=== PATIENT | female | born 1990 | race Caucasian/White ===

== ENCOUNTER 2017-10-01 07:39 | Emergency (ER) | payer BC ==
[2017-10-01 07:56] VITALS: BP 115/66
--- NOTE | 2017-10-01 08:24 | UC ---
Complaint Female HPI - HPI Summary HPI Summary: Pt with frequent, urgency x 4 days no n/v no fever, chills, rash no back pain No hematuria. + po no analgesia No vaginal discharge, itching, odor Pt's medications reviewed this visit - History Of Current Complaint Chief Complaint: UCGU Stated Complaint: URINARY COMPLAINT Time Seen by Provider: 10/01/17 08:07 Hx Obtained From: Patient Hx Last Menstrual Period: 09/04/17 Onset/Duration: Gradual Onset, Lasting Days Pain Intensity: 0 - Allergies/Home Medications Allergies/Adverse Reactions: Allergies Allergy/AdvReac Type Severity Reaction Status Date / Time amoxicillin Allergy Intermediate Hives Verified 10/01/17 07:55 Home Medications: Home Medications Norethindrone AC-Eth Estradiol [Microgestin 07/17 1-20 mg-Mcg] 1 tab PO DAILY 12/13 [History Confirmed 10/01/17] PMH/Surg Hx/FS Hx/Imm Hx Previously Healthy: Yes Other History Of: Negative For: HIV, Hepatitis B, Hepatitis C, Anticoagulant Therapy - Surgical History Surgical History: None - Family History Known Family History: Negative: Cardiac Disease, Hypertension, Diabetes - Social History Occupation: Employed Full-time Lives: With Family Alcohol Use: Occasionally Substance Use Type: None Smoking Status (MU): Light Every Day Tobacco Smoker Type: Cigarettes Amount Used/How Often: 1/2 PPD Length of Time of Smoking/Using Tobacco: 5 YRS Have You Smoked in the Last Year: Yes Household Exposure Type: Cigarettes Review of Systems Constitutional: Negative Gastrointestinal: Negative Genitourinary: Dysuria, Frequency, Urgency All Other Systems Reviewed And Are Negative: Yes Physical Exam Triage Information Reviewed: Yes Appearance: Well-Appearing, No Pain Distress Vital Signs: Initial Vital Signs Temp 99.0 F 10/01/17 07:49 Pulse 85 10/01/17 07:49 Resp 18 10/01/17 07:49 BP 115/66 10/01/17 07:49 Pulse Ox 99 10/01/17 07:49 Vital Signs Reviewed: Yes Eye Exam: Normal ENT Exam: Normal Dental Exam: Normal Neck exam: Normal Neck: Positive: Supple, Nontender Respiratory Exam: Normal Respiratory: Positive: Lungs clear, Normal breath sounds, No respiratory distress, No accessory muscle use Cardiovascular Exam: Normal Cardiovascular: Positive: RRR, No Murmur Abdominal Exam: Normal Abdomen Description: Positive: Nontender, No Organomegaly, Soft. Negative: CVA Tenderness (R), CVA Tenderness (L) Musculoskeletal Exam: Normal Neurological Exam: Normal Psychological Exam: Normal Skin Exam: Normal Complaint Female Dx - Course Course Of Treatment: Pt with urgency, frequent. VSS. exam non concerning. bactrim. hydrate. motrin/apap. pt will take OTC azo. Pt request diflucan for abx related yeast. return precautions discussed. Pt aware of culture - Differential Dx/Diagnosis Provider Diagnoses: UTI Discharge - Sign-Out/Discharge Documenting (check all that apply): Discharge - home - Discharge Plan Condition: Stable Disposition: HOME Prescriptions: Fluconazole 150 MG (NF) [Diflucan 150 mg (NF)] 150 mg PO ONCE PRN #1 tab PRN Reason: vaginal yeast infection Sulfamethox/Trimethoprim DS* [Bactrim DS 800/160 TAB*] 1 tab PO BID #14 tab Patient Education Materials: Urinary Tract Infection in Women (ED) Referrals: Kasandra Thrasher MD [Primary Care Provider] - Additional Instructions: - stay well hydrated - drink plenty of non-alcoholic, non caffinated beverages - your urine will be further tested - if you require any changes to your treatment, we will contact you - this usually take 2 days - Contact your primary doctor to arrange a follow-up appointment next week. Contact your doctor or return with questions or concerns - Take your antibiotics exactly as prescribed until gone - okay to take Azo as prescribed for discomfort. This will make your urine blaze orange - this is normal - Okay to alternate ibuprofen (Advil, Motrin) and Tylenol every 3 hours for pain. Take with food - If you develop fevers, back pain, chills, vomiting or other concerns - you should go to the emergency department - you have been prescribed the one time treatment for a yeast infection - okay to use as needed after you complete your antibiotics - Call your doctor or return with questions or concerns - Billing Disposition and Condition Condition: STABLE Disposition: HOME
== END 2017-10-01 08:37 | disposition home or self-care (01) ==
LOC: UCCORT 07:39
DX: N39.0 Urinary tract infection, site not specified (principal); F17.210 Nicotine dependence, cigarettes, uncomplicated
CPT/HCPCS: 81003; 87077; 87086; 87186; 99212; G0463

== ENCOUNTER 2018-01-12 08:36 | Emergency (ER) | payer BC ==
--- OUTSIDE RECORDS SUMMARY | 2018-01-12 08:51 | XMS REPORT ---
:1990 External Reference #:[id number] Author Organization [facility]ly [facility] Address [address], [address] [place] [address] Phone [phone] Care Team Providers Name Role Phone Kasandra Thrasher M.D. Care Team Information Accounts Executive Unavailable Kasandra Thrasher M.D. Primary Care Physician Unavailable Payers Type Date Identification Numbers Payment Provider Subscriber Commercial Policy Number: [id number] Rhonda Epps PayID: [id number] [address] [address] [place] [address] Problems Date Description Provider Status Onset: 12/13/2015 Tobacco user Kasandra Thrasher M.D. Active Onset: 12/13/2015 Manic bipolar I disorder in partial Kasandra Thrasher M.D. Active remission Onset: 12/13/2015 Epilepsy Kasandra Thrasher M.D. Active Family History Date Family Member(s) Problem(s) Comments General Epilepsy Social History Type Date Description Comments ETOH Use Drinks Alcoholic Beverages Occasionally Smoking Heavy tobacco smoker (more than 10 cigarettes/day) Allergies, Adverse Reactions, Alerts Date Description Reaction Status Severity Comments 12/13/2015 Amoxicillin active Medications Medication Date Status Form Strength Qnty SIG Indications Ordering Provider Quetiapine 12/31 Active Tablets 25mg 30tab take 1 tab by Kasandra Fumarate s mouth at Melissa Thrasher bedtime Norethindrone 12/17 Active Tablets 1-20mg-mc 63tab take 1 pill Z30.011 Kasandra Acetate/Ethiny /2016 g s by mouth Melissa Thrasher l Estradiol every daily x 21 days and then no pills x 7 days Lamotrigine Active Tablets 200mg 1 1/2 by Unknown /0000 mouth twice a day Depo-Provera 12/12 Hx Suspension 150mg/ml 1unit inject 150mg s intramuscular Melissa Thrasher - ly every 3 Quetiapine Hx Tablets 50mg 30tab take one Kasandra s tablet by Melissa Thrasher - mouth every 12/31 evening at 2018 bedtime Immunizations CPT Code Status Date Vaccine Lot # [id number] Given 04/18/2014 Influenza Vaccine (Fluzone) Age 3 And Older [id number] Given 09/20/2009 Gardasil 06090 Given 03/01/2009 Gardasil U-MCV4 Given 12/14/2008 Meningococcal MCV4,Unspecified 21842 Given 12/14/2008 Tdap injection 32995 Given 12/14/2008 Gardasil U-DTaP Given 09/09/1995 DTaP,Unspecified 86815 Given 09/09/1995 Hepatitis B Vaccine Pediatric/Adolescent 13468 Given 09/09/1995 Poliovirus Vaccine Subcutaneous Or Intramuscular 64860 Given 09/09/1995 MMR Vaccine, Live, For Subcutaneous Use 33057 Given 01/02/1993 Hepatitis B Vaccine Pediatric/Adolescent 16866 Given 07/11/1992 Hepatitis B Vaccine Pediatric/Adolescent U-DTaP Given 04/17/1992 DTaP,Unspecified 81001 Given 04/17/1992 Poliovirus Vaccine Subcutaneous Or Intramuscular 85383 Given 04/17/1992 MMR Vaccine, Live, For Subcutaneous Use U-DTaP Given 02/17/1991 DTaP,Unspecified 59672 Given 02/17/1991 Hib PRP-T Conjugate 4 Dose Schedule U-DTaP Given 1990 DTaP,Unspecified 15567 Given 1990 Poliovirus Vaccine Subcutaneous Or Intramuscular 03257 Given 1990 Hib PRP-T Conjugate 4 Dose Schedule U-DTaP Given 1990 DTaP,Unspecified 47017 Given 1990 Poliovirus Vaccine Subcutaneous Or Intramuscular 79305 Given 1990 Hib PRP-T Conjugate 4 Dose Schedule Vital Signs Date Vital Result Comment 12/31/2017 BP Systolic Sitting Left Arm 112 mmHg BP Diastolic Sitting Left Arm 70 mmHg Body Temperature 98.7 F Heart Rate 92 /min Weight 113.00 lb O2 % BldC Oximetry 97 % 04/30/2017 BP Systolic 114 mmHg BP Diastolic 68 mmHg Height 61 inches 5'1" Weight 115.50 lb BMI (Body Mass Index) 21.8 kg/m2 BSA (Body Surface Area) 1.50 m2 [facility] body weight in kilograms 48 12/17/2016 BP Systolic 124 mmHg BP Diastolic 82 mmHg Body Temperature 99.7 F Heart Rate 79 /min Height 61 inches 5'1" Weight 116.00 lb BMI (Body Mass Index) 21.9 kg/m2 BSA (Body Surface Area) 1.50 m2 [facility] body weight in kilograms 48 12/13/2015 BP Systolic Sitting Left Arm 112 mmHg BP Diastolic Sitting Left Arm 70 mmHg Heart Rate 72 /min Respiratory Rate 18 /min Height 61 inches 5'1" Weight 110.00 lb BMI (Body Mass Index) 20.8 kg/m2 BSA (Body Surface Area) 1.46 m2 [facility] body weight in kilograms 48 Results Test Date Test Result H/L Range Note Laboratory test 10/01/2017 Urine Culture SEE RESULT BELOW 1, 2 finding Poc Urinalysis 10/01/2017 Poc Glucose, Negative Negative Urine Poc Bilirubin, Urine Negative Negative Poc Ketone, Urine Negative Negative Poc Specific [place], Urine >=1.030 1.010-1.030 Poc Blood, Urine Trace-intact Negative Poc pH, Urine 6.5 5-9 Poc Protein, Urine 1+ Negative Poc Urobilinogen, Urine 0.2 Negative Poc Nitrite, Urine Positive Negative Poc Leukocytes, Urine 1+ Negative Poc Color, Urine Other Poc Clarity, Urine Slightly Cloudy 3 Laboratory test finding 07/20/2017 Lamotrigine (Lamictal) 17.8 g/mL 2.5 - 15.0 4 Laboratory test finding 01/08/2017 Lamotrigine (Lamictal) 11.5 g/mL 2.5 - 15.0 5 Laboratory test finding 12/25/2016 Lamotrigine 9.3 g/mL 2.5 - 15.0 6 Laboratory test finding 02/25/2016 Lamotrigine (Lamictal) 8.7 g/mL 2.5 - 15.0 7 1 [id number] 2 SEE RESULT BELOW Name: HANNAH EPPS : [address]: Kathleen Sanchez MD Acct: [id number] Unit: [id number] AGE: 27 Location: [facility] Re10/01/17 SEX: F Status: DEP ER SPEC: [id number] LEYLA: 10/01/17-806 [facility] [address]: Kathleen Sanchez MD REQ: [id number] RECD: 10/01/17 STATUS: PEG CLARK DR: Kasandra Thrasher MD _ SOURCE: URINE SPDESC: ORDERED: Urine Culture COMMENTS: [id number] Procedure Result Reported Site Urine Culture Final 10/03/17- 0903 ML Organism 1 ESCHERICHIA COLI [place] Count >100,000 (Many) CFU/ML 1. ESCHERICHIA COLI M.I.C. RX --------- ------ Ampicillin >=32 R Cefazolin <=4 S Cefepime <=1 S Ceftriaxone <=1 S Ciprofloxacin <=0.25 S Gentamicin <=1 S Levofloxacin <=0.12 S Meropenem <=0.25 S Nitrofurantoin <=16 S Tetracycline <=1 S Pipercillin/Tazobactam <=4 S Trimethoprim/Sulfamethoxazole <=20 S Amoxicillin/Clavulanic Acid 4 S Aztreonam <=1 S Contact the Microbiology Department for any additional antibiotic reporting. * ML - Main Lab . END OF REPORT DEPARTMENT OF PATHOLOGY, [address] [place] [address] Americo Coley M.D. Director [facility] # [id number] 3 [employer] Safety Professor: [id number] ADDITIONAL INFORMATION This test was developed and its performance characteristics determined by [facility] in a manner consistent with CLIA requirements. This test has not been cleared or approved by the U.S. Food and Drug Administration. Test Performed by: [facility] [address] [place] [address] 5 ADDITIONAL INFORMATION This test was developed and its performance characteristics determined by [facility] in a manner consistent with CLIA requirements. This test has not been cleared or approved by the U.S. Food and Drug Administration. Test Performed by: [facility] - [address] [address] 6 ADDITIONAL INFORMATION This test was developed and its performance characteristics determined by [facility] in a manner consistent with CLIA requirements. This test has not been cleared or approved by the U.S. Food and Drug Administration. Test Performed by: [facility] - [address] [address] Test Performed by: [facility] - [address] [address] Sample Tester Grinder: Magdy Benz II, M.D., Ph.D. Procedures Description No Information Encounters Type Date Location Provider CPT E/M Dx Office Visit 12/31/2017 10:45a [facility] Kasandra Thrasher M.D. 17999 F31.73 G40.909 Office Visit 04/30/2017 11:45a [facility] Kasandra Thrasher M.D. 90339 Z30.41 G40.909 F31.73 Office Visit 12/17/2016 2:45p [facility] Kasandra Thrasher M.D. 04423 Z30.011 Office Visit 12/13/2015 9:00a [facility] Kasandra Thrasher M.D. 08239 G40.909 F31.73 D68.0 Z30.8 F17.210 Z71.6 Plan of Care Future Appointment(s):02/09/2018 2:00 pm - Kasandra Thrasher M.D. at [facility]12/31/2017 - Kasandra Thrasher M.D.F31.73 Bipolar disord, in partial remis, most recent episode manicComments:will start taper because of patient request, aware that she could relapse or cycle back into mood disorderwill start seroquel 25mg and take daily for 1 mosthen decrease to 25mg QOD for 1 mosthen decrease to 25mg every few days and then d/c over 3 months totalwill do longer taper to avoid relapsewill call with any mood concerns or side effect concernsHas BF she sees regularly that could help advise her if any concern mood changes she is not aware ofFollow up:3-6 weeks as ANNUAL PEG40.909 Epilepsy , unsp, not intractable, without status epilepticus
[2018-01-12 08:56] VITALS: BP 108/68
--- NOTE | 2018-01-12 09:32 | UC ---
Complaint Female HPI - HPI Summary HPI Summary: Dysuria starting yesterday. No fever, vomiting, flank pain. No vaginal symptoms. Prior UTI was a while ago. - History Of Current Complaint Chief Complaint: UCGU Stated Complaint: URINARY Time Seen by Provider: 01/12/18 09:00 Hx Obtained From: Patient Hx Last Menstrual Period: unknown ?: No Onset/Duration: Gradual Onset, Lasting Hours Timing: Constant Severity Initially: Moderate Severity Currently: Moderate Pain Intensity: 0 Character: Burning Aggravating Factor(s): Urination Alleviating Factor(s): Nothing Associated Signs And Symptoms: Positive: Negative - Allergies/Home Medications Allergies/Adverse Reactions: Allergies Allergy/AdvReac Type Severity Reaction Status Date / Time amoxicillin Allergy Intermediate Hives Verified 01/12/18 08:51 Home Medications: Home Medications QUEtiapine TAB* [Seroquel 25 MG TAB*] 25 mg PO DAILY 01/12/18 [History Confirmed 01/12/18] PMH/Surg Hx/FS Hx/Imm Hx Previously Healthy: No - epilepsy. Other History Of: Negative For: HIV, Hepatitis B, Hepatitis C, Anticoagulant Therapy - Surgical History Surgical History: None - Family History Known Family History: Negative: Cardiac Disease, Hypertension, Diabetes - Social History Occupation: Employed Full-time Alcohol Use: Occasionally Substance Use Type: None Smoking Status (MU): Heavy Every Day Tobacco Smoker Type: Cigarettes Amount Used/How Often: 1/2 PPD Length of Time of Smoking/Using Tobacco: 5 YRS Have You Smoked in the Last Year: Yes Household Exposure Type: Cigarettes Review of Systems Genitourinary: Dysuria, Frequency All Other Systems Reviewed And Are Negative: Yes Physical Exam Triage Information Reviewed: Yes Appearance: Well-Appearing, No Pain Distress, Well-Nourished Vital Signs: Initial Vital Signs Temp 99.4 F 01/12/18 08:52 Pulse 84 01/12/18 08:52 Resp 14 01/12/18 08:52 BP 108/68 01/12/18 08:52 Pulse Ox 100 01/12/18 08:52 Vital Signs Reviewed: Yes Eyes: Positive: Conjunctiva Clear ENT: Positive: Normal ENT inspection Neck: Positive: Supple, Nontender, No Lymphadenopathy Respiratory: Positive: Chest non-tender, Lungs clear, Normal breath sounds, No respiratory distress, No accessory muscle use. Negative: Respiratory distress, Decreased breath sounds, Accessory muscle use Cardiovascular: Positive: No Murmur, Pulses Normal, Brisk Capillary Refill Abdomen Description: Positive: Nontender, No Organomegaly, Soft. Negative: CVA Tenderness (R), CVA Tenderness (L), Distended, Guarding Musculoskeletal: Positive: Strength Intact, ROM Intact, No Edema Neurological: Positive: Alert, Muscle Tone Normal. Negative: Fatigued Psychological: Positive: Age Appropriate Behavior Skin: Negative: rashes Complaint Female Dx - Course Course Of Treatment: she agrees to return for any worsening symptoms. - Differential Dx/Diagnosis Provider Diagnoses: uti Discharge - Sign-Out/Discharge Documenting (check all that apply): Patient Departure - Discharge Plan Condition: Good Disposition: HOME Prescriptions: Nitrofurantoin Macrocrystals* [Macrodantin 100 mg*] 100 mg PO BID #20 cap Patient Education Materials: Urinary Tract Infection in Women (ED) Referrals: Kasandra Thrasher MD [Primary Care Provider] - - Billing Disposition and Condition Condition: GOOD Disposition: Home
== END 2018-01-12 09:34 | disposition home or self-care (01) ==
LOC: UCCORT 08:36
DX: N39.0 Urinary tract infection, site not specified (principal); Z88.0 Allergy status to penicillin
CPT/HCPCS: 81003; 87077; 87086; 87186; 99212; G0463

== ENCOUNTER 2018-08-16 09:56 | Emergency (ER) | payer BC ==
[2018-08-16 10:37] VITALS: BP 113/59
--- NOTE | 2018-08-16 10:51 | UC ---
Headache HPI - HPI Summary HPI Summary: 28-year-old female presents with complaints of dizziness. She states that she had 3 days worth of dizziness which she described as a room spinning and lightheadedness sensation that occurred last week from 08/08/2018 until 2018. States the dizziness was persistent over the full 3 days and then resolved on its own. States she also had a headache in the afternoon while 3 days that was located behind her left eye and radiated into her left jaw. She has a history of migraine headaches. States the headaches were consistent with her migraine headaches although they tend to be right-sided. She did note having some mild nausea during the dizziness but no episodes of vomiting. She also complained one episode on 08/09/2018 of some sharp epigastric pain that lasted for a couple of hours and resolved. She is presently symptom-free. Denies fever, chills, ear discharge, tinnitus, visual disturbances, facial droop , slurred or difficulty speaking, chest pain, palpitations, shortness of breath , loss of consciousness, confusion, memory loss, diarrhea, or urinary symptoms. States she has an appointment with her neurologist scheduled for next week. - History Of Current Complaint Chief Complaint: UCDizziness Stated Complaint: DIZZINESS, HEADACHES Time Seen by Provider: 08/16/18 10:48 Hx Obtained From: Patient Hx Last Menstrual Period: 08/04/18 Pain Intensity: 0 - Allergies/Home Medications Allergies/Adverse Reactions: Allergies Allergy/AdvReac Type Severity Reaction Status Date / Time amoxicillin Allergy Intermediate Hives Verified 08/16/18 10:29 Home Medications: Home Medications Ibuprofen TAB* [Advil TAB*] 400 mg PO Q6H PRN 08/16/18 [History Confirmed ] Norethindrone-E.estradiol-Iron [Norma Fe 07/17] 1 tab PO DAILY 08/16/18 [History Confirmed 08/16/18] PMH/Surg Hx/FS Hx/Imm Hx Previously Healthy: Yes Neurological History: Migraine Other History Of: Negative For: HIV, Hepatitis B, Hepatitis C, Anticoagulant Therapy - Surgical History Surgical History: None - Family History Known Family History: Negative: Cardiac Disease, Hypertension, Diabetes - Social History Occupation: Employed Full-time Lives: Alone Alcohol Use: Rare Substance Use Type: None Smoking Status (MU): Heavy Every Day Tobacco Smoker Type: Cigarettes Amount Used/How Often: 1/4 PPD Length of Time of Smoking/Using Tobacco: 5 YRS Have You Smoked in the Last Year: Yes Household Exposure Type: Cigarettes Review of Systems All Other Systems Reviewed And Are Negative: Yes Constitutional: Negative: Fever, Chills Skin: Negative: Rash Eyes: Negative: Blurred Vision, Diplopia, Drainage, Eye Redness, Photophobia ENT: Positive: Ear Ache. Negative: Sore Throat, Nasal Discharge, Sinus Congestion, Sinus Pain/Tenderness Respiratory: Negative: Shortness Of Breath, Cough Cardiovascular: Negative: Palpitations, Chest Pain Gastrointestinal: Positive: Nausea. Negative: Abdominal Pain, Vomiting, Diarrhea Genitourinary: Negative: Dysuria, Hematuria, Frequency, Urgency, Vaginal/Penile Discharge, Abnormal Bleeding Musculoskeletal: Positive: Negative Neurological: Positive: Headache. Negative: Weakness, Paresthesia, Numbness Is Patient Immunocompromised?: No Physical Exam - Summary Physical Exam Summary: GENERAL APPEARANCE: Well developed, well nourished, alert and cooperative, and appears to be in no acute distress. HEAD: Atraumatic. normocephalic. EYES: Conjunctiva clear. No discharge. PERRL, EOM intact. Vision is grossly intact. EARS: External auditory canals and tympanic membranes clear, hearing grossly intact. NOSE: No nasal discharge. THROAT: Oral cavity and pharynx normal. No inflammation, swelling, exudate, or lesions. Teeth and gingiva in good general condition. NECK: Neck supple, non-tender without lymphadenopathy. CARDIAC: Normal S1 and S2. No S3, S4 or murmurs. Rhythm is regular. There is no peripheral edema, cyanosis or pallor. Extremities are warm and well perfused. Capillary refill is less than 2 seconds. Peripheral pulses intact. LUNGS: Clear to auscultation without rales, rhonchi, wheezing or diminished breath sounds. ABDOMEN: Positive bowel sounds. Soft, nondistended, nontender. No guarding or rebound. No masses or hepatosplenomegally. MUSKULOSKELETAL: ROM intact to all extremities. No joint erythema or tenderness. Normal muscular development. Normal gait. NEUROLOGICAL: CN II-XII intact. Strength and sensation symmetric and intact throughout. Reflexes 2+ throughout. Cerebellar testing normal. SKIN: Skin normal color, texture and turgor with no lesions or eruptions. Triage Information Reviewed: Yes Vital Signs: Initial Vital Signs Temp 98.0 F 08/16/18 10:31 Pulse 82 08/16/18 10:31 Resp 15 08/16/18 10:31 BP 113/59 08/16/18 10:31 Pulse Ox 99 08/16/18 10:31 Vital Signs Reviewed: Yes Diagnostics - Laboratory Diagnostic Studies Completed/Ordered: Urine negative Headache Course/Dx - Course Course Of Treatment: 28-year-old female presents with complaints of dizziness. She states that she had 3 days worth of dizziness which she described as a room spinning and lightheadedness sensation that occurred last week from 08/08/2018 until 08/10/2018. States the dizziness was persistent over the full 3 days and then resolved on its own. States she also had a headache in the afternoon while 3 days that was located behind her left eye and radiated into her left jaw. She has a history of migraine headaches. States the headaches were consistent with her migraine headaches although they tend to be right-sided. She did note having some mild nausea during the dizziness but no episodes of vomiting. She also complained one episode on 08/09/2018 of some sharp epigastric pain that lasted for a couple of hours and resolved. She is presently symptom-free. Denies fever, chills, ear discharge, tinnitus, visual disturbances, facial droop, slurred or difficulty speaking, chest pain, palpitations, shortness of breath, loss of consciousness, confusion, memory loss , diarrhea, or urinary symptoms. States she has an appointment with her neurologist scheduled for next week. - Differential Dx/Diagnosis Differential Diagnosis/HQI/PQRI: TIA, Migraine, Sinus Headache, Viral Syndrome, Other - vertigo, vestibular neuritis, GERD, PUD, gall bladder disease Provider Diagnosis: Vertigo, Acute epigastric pain Discharge - Sign-Out/Discharge Documenting (check all that apply): Patient Departure All imaging exams completed and their final reports reviewed: No Studies - Discharge Plan Condition: Stable Disposition: HOME Patient Education Materials: Vertigo (ED), Epigastric Pain (ED) Referrals: No Primary Care Phys,NOPCP [Primary Care Provider] - Additional Instructions: Your exam in the clinic today was normal and with the resolution of your symptoms I suspect they were from a benign cause. Keep your appointment with your neurologist next week. Follow up with your primary care provider if you continue to have issues with the epigastric pain. Seek immediate medical attention in the emergency room if you develop a sudden and severe headache that does not improve with over the counter pain medication , you have visual disturbances, persistent dizziness, facial droop, slurred or difficulty speaking, chest pain, feeling like your heart is racing or skipping beats, you pass out, develop weakness, numbness, or tingling in your arms or legs, or have any worsening of symptoms. - Billing Disposition and Condition Condition: STABLE Disposition: Home
== END 2018-08-16 11:39 | disposition home or self-care (01) ==
LOC: UCCORT 09:56
DX: R42 Dizziness and giddiness (principal); R10.13 Epigastric pain; R51 Headache; R11.0 Nausea; F17.210 Nicotine dependence, cigarettes, uncomplicated; Z88.0 Allergy status to penicillin
CPT/HCPCS: 84702; 99211; G0463

== ENCOUNTER 2018-11-17 07:53 | Emergency (ER) | payer BC ==
[2018-11-17 08:09] VITALS: BP 105/72
--- NOTE | 2018-11-17 08:35 | ED ---
Skin Complaint - HPI Summary HPI Summary: 28 yr old female with pain lateral upper right lip. The patient states that she had a sharp, she popped it and has some pus. She has some mild swelling to the area. She has symptoms that are moderate. She has had trouble with dry cracked skin corner of her right mouth for two months. No vesicles. No other complaints. - History of Current Complaint Chief Complaint: UCSkin Time Seen by Provider: 11/17/18 08:21 Stated Complaint: FACIAL SKIN COMPLAINT Hx Last Menstrual Period: 11/02/18 Pain Intensity: 0 - Allergy/Home Medications Allergies/Adverse Reactions: Allergies Allergy/AdvReac Type Severity Reaction Status Date / Time amoxicillin Allergy Intermediate Hives Verified 11/17/18 08:09 PMH/Surg Hx/FS Hx/Imm Hx Endocrine/Hematology History: Denies: Hx Anticoagulant Therapy, Hx Diabetes, Hx Thyroid Disease Cardiovascular History: Denies: Hx Congestive Heart Failure, Hx Deep Vein Thrombosis, Hx Hypertension , Hx Myocardial Infarction, Hx Pacemaker/ICD Respiratory History: Denies: Hx Asthma, Hx Chronic Obstructive Pulmonary Disease (COPD), Hx Lung Cancer, Hx Pneumonia, Hx Pulmonary Embolism GI History: Denies: Hx Gall Bladder Disease, Hx Gastrointestinal Bleed, Hx Ulcer, Hx Urosepsis History: Denies: Hx Kidney Stones, Hx Renal Disease Neurological History: Reports: Hx Seizures Denies: Hx Dementia, Hx Migraine, Hx Transient Ischemic Attacks (TIA) Psychiatric History: Reports: Hx Bipolar Disorder Denies: Hx Anxiety, Hx Depression, Hx Schizophrenia Infectious Disease History: No Infectious Disease History: Denies: Hx Clostridium Difficile, Hx Hepatitis, Hx Human Immunodeficiency Virus (HIV), Hx of Known/Suspected MRSA, Hx Shingles, Hx Tuberculosis, Hx Known/ Suspected VRE, Hx Known/Suspected VRSA, History Other Infectious Disease, Traveled Outside the [place] in Last 30 Days - Family History Known Family History: Negative: Cardiac Disease, Hypertension, Diabetes - Social History Occupation: Employed Full-time Alcohol Use: Rare Substance Use Type: Reports: None Smoking Status (MU): Light Every Day Tobacco Smoker Type: Cigarettes Amount Used/How Often: 1/2 PPD Length of Time of Smoking/Using Tobacco: 10 Have You Smoked in the Last Year: Yes Review of Systems Constitutional: Negative Positive: Other - swelling upper lateral right lip. All Other Systems Reviewed And Are Negative: Yes Physical Exam Triage Information Reviewed: Yes Vital Signs On Initial Exam: Initial Vitals Temp Pulse Resp BP Pulse Ox 99.1 F 92 18 105/72 100 11/17/18 08:05 11/17/18 08:05 11/17/18 08:05 11/17/18 08:05 11/17/18 08:05 Vital Signs Reviewed: Yes Appearance: Positive: Well-Appearing, No Pain Distress Skin: Positive: Warm, Skin Color Reflects Adequate Perfusion Head/Face: Positive: Normal Head/Face Inspection Eyes: Positive: EOMI, KINDRA ENT: Positive: Other - the right upper lateral lip is with mild swelling and tenderness and an area where a hair follicle pimple was is present and small opening. She has dry skin to corner of right mouth. Neck: Positive: Nontender Respiratory/Lung Sounds: Positive: Clear to Auscultation, Breath Sounds Present Cardiovascular: Positive: RRR. Negative: Murmur Abdomen Description: Negative: Distended Musculoskeletal: Positive: Strength/ROM Intact Neurological: Positive: Sensory/Motor Intact, Alert, Oriented to Person Place, Time, CN Intact II-III Psychiatric: Positive: Normal Diagnostics - Vital Signs Vital Signs Temp Pulse Resp BP Pulse Ox 11/17/18 08:05 99.1 F 92 18 105/72 100 - Laboratory Lab Statement: Any lab studies that have been ordered have been reviewed, and results considered in the medical decision making process. Course/Dx - Course Course Of Treatment: 28 yr old with cellulitis upper lateral right lip, and dry skin. Rx clindamycin. moisturizer to the corner of the mouth. referral to derm for her corner of the mouth that has been dry for a couple of months. - Diagnoses Provider Diagnoses: Folliculitis Discharge - Sign-Out/Discharge Documenting (check all that apply): Patient Departure All imaging exams completed and their final reports reviewed: No Studies - Discharge Plan Condition: Good Disposition: HOME Prescriptions: Clindamycin Cap(NF) [Clindamycin Cap 300 mg Cap(NF)] 300 mg PO TID #30 cap Patient Education Materials: Eczema (ED), Folliculitis (ED) Referrals: No Primary Care Phys,NOPCP [Primary Care Provider] - Jesus CAGE,Antoine Fox [Medical Doctor] - 2 Days [facility] REFERRAL [Outside] - 2 Days Additional Instructions: use Lanolin to the corner of your mouth twice a day for moisturizer. - Billing Disposition and Condition Condition: GOOD Disposition: Home
== END 2018-11-17 08:51 | disposition home or self-care (01) ==
LOC: UCCORT 07:53
DX: L73.9 Follicular disorder, unspecified (principal); F17.210 Nicotine dependence, cigarettes, uncomplicated; Z88.0 Allergy status to penicillin
CPT/HCPCS: 99212; G0463